=== PATIENT | female | born 1995 | race Caucasian/White ===

== ENCOUNTER 2020-05-18 21:54 | Emergency (ER) | payer OTHER ==
[~2020-05-18] VITALS: Ht 170.2 cm; Wt 71.1 kg
[2020-05-18 21:55] VITALS: BP 133/80
[2020-05-18] MEDS ORDERED: LEXA1TAB PO (21:59)
[2020-05-18] MEDS ORDERED: diphenhydrAMINE 50MG/ML VIAL (J1200) IV STA (22:29)
[2020-05-18] MEDS ORDERED: dexameTHASONE 20MG/5ML VIAL (J1100 PER 1MG) IV ONE (22:30)
[2020-05-18] MEDS ORDERED: FAMOTIDINE INJ 20MG/2ML VIAL (S0028 PER 1) IVP ONE (22:30)
[2020-05-18] MEDS ORDERED: PEPC1TAB5 PO (23:44)
[2020-05-18] MEDS ORDERED: BENA25CA4 PO (23:45)
[2020-05-18] MEDS ORDERED: PRED20TA PO (23:46)
== END 2020-05-19 00:12 | disposition home or self-care (01) ==
LOC: M ED 21:54
DX: L29.9 Pruritus, unspecified (principal); R21 Rash and other nonspecific skin eruption; T78.40XA Allergy, unspecified, initial encounter
CPT/HCPCS: 96374; 96375; 99283; J1100; J1200

== ENCOUNTER 2020-10-16 21:00 | Emergency (ER) | payer OTHER ==
[~2020-10-16] VITALS: Ht 170.2 cm; Wt 70.9 kg
[~2020-10-16 21:00] MED LIST: BENA25CA4 PO; LEXA1TAB PO; PEPC1TAB5 PO; PRED20TA PO
[2020-10-16 21:02] VITALS: BP 131/71
[2020-10-16] MEDS ORDERED: ALBUTEROL 90 MCG/ACT 8GM HFA INHALER INH ONE (23:05)
[2020-10-17] MEDS ORDERED: VENTAER INH (01:11)
== END 2020-10-17 01:28 | disposition home or self-care (01) ==
LOC: M ED 21:00
DX: J20.9 Acute bronchitis, unspecified (principal); F33.9 Major depressive disorder, recurrent, unspecified; Z79.899 Other long term (current) drug therapy

== ENCOUNTER 2020-11-24 02:37 | Emergency (ER) | payer OTHER ==
[~2020-11-24] VITALS: Ht 170.2 cm; Wt 68.2 kg
[~2020-11-24 02:37] MED LIST changes: +VENTAER INH
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
[2020-11-24] MEDS ORDERED: OXYCODONE/APAP 5MG/325MG(BULK FOR ED) 1 TABLET PO ONE (05:55)
[2020-11-24] MEDS ORDERED: PERC5TAB12 PO (05:56)
[2020-11-24] MEDS ORDERED: AUGM875T28 PO (06:12)
[2020-11-24] MEDS ORDERED: PERI0.126 PO (06:12)
[2020-11-24 06:15] VITALS: BP 128/69
== END 2020-11-24 06:30 | disposition home or self-care (01) ==
LOC: M ED 02:37
DX: S02.602A Fracture of unspecified part of body of left mandible, initial encounter for closed fracture (principal); S02.642A Fracture of ramus of left mandible, initial encounter for closed fracture; Y04.0XXA Assault by unarmed brawl or fight, initial encounter; Y92.89 Other specified places as the place of occurrence of the external cause; Z79.899 Other long term (current) drug therapy